=== PATIENT | male | born 1965 | race Caucasian/White ===

== ENCOUNTER 2017-03-23 18:04 | Emergency (ER) | payer BC ==
[2017-03-23 18:31] VITALS: BP 141/81
--- NOTE | 2017-03-23 18:32 | EDM.PDOC ---
ED HPI GENERAL MEDICAL PROBLEM - General Chief Complaint: Lower Extremity Injury/Pain Stated Complaint: LEFT LEG INJURY Time Seen by Provider: 03/23/17 18:15 Source of Information: Reports: Patient, Family History Limitations: Reports: No Limitations - History of Present Illness INITIAL COMMENTS - FREE TEXT/NARRATIVE: 51 yo male was lifting heavy steel weighing each about 150# out of the back of his pickup by himself just before arrival in the ER when he felt a pop in the L medial calf. He was having to stand on his tip toes to get the steel out of the truck. Now has pain to that same area with walking, viv with his knee fully extended. Had no pain or swelling to this area prior to this. Denies SOB or pleuritic chest pain. Onset: Today Onset Date: 03/23/17 Onset Time: 16:55 Duration: Minutes: Location: Reports: Lower Extremity, Left Quality: Reports: Sharp Severity: Moderate Improves with: Reports: Rest (No pain at rest. ) Worsens with: Reports: Movement Context: Reports: Trauma Associated Symptoms: Reports: No Other Symptoms Treatments [employer]: Reports: Other (see below) (none) - Related Data Allergies Allergy/AdvReac Type Severity Reaction Status Date / Time No Known Allergies Allergy Verified 03/23/17 18:25 Home Meds: Home Meds NK [No Known Home Meds] 03/23/17 [History] Review of Systems - Review of Systems Review Of Systems: See Below Constitutional: Reports: No Symptoms Respiratory: Reports: No Symptoms Cardiovascular: Reports: No Symptoms Musculoskeletal: Reports: Leg Pain (L medial calf), Muscle Pain Neurological: Reports: No Symptoms ED EXAM, GENERAL - Physical Exam Exam: See Below Exam Limited By: No Limitations General Appearance: Alert, WD/WN, No Apparent Distress Back Exam: Normal Inspection Extremities: Normal Inspection, No Pedal Edema, Other (Very minimal pain with palpation or squeezing of the calf muscle. Stretching the calf is more uncomfortable. ). No: Pedal Edema Neurological: Alert, Oriented, CN II-XII Intact, Normal Cognition, No Motor/ Sensory Deficits Psychiatric: Normal Affect, Normal Mood Skin Exam: Warm, Dry, Intact, Normal Color, No Rash Departure - Departure Time of Disposition: 18:40 Disposition: Home, Self-Care 01 Condition: Good Clinical Impression: Gastrocnemius muscle tear Qualifiers: Encounter type: initial encounter Laterality: left Qualified Code(s): S86.812A - Strain of other muscle(s) and tendon(s) at lower leg level, left leg, initial encounter - Discharge Information Referrals: Alin Coker MD [Primary Care Provider] - Forms: ED Department Discharge, ED Return to Work/School Form Additional Instructions: Crutch walking. Gentle stretching. Massage area. Take ibuprofen 400 mg every 6 hrs and/or acetaminophen as needed for pain relief. Recheck in the clinic as needed.
== END 2017-03-23 18:37 | disposition home or self-care (01) ==
LOC: FB.ED 18:04
DX: S86.812A Strain of other muscle(s) and tendon(s) at lower leg level, left leg, initial encounter (principal); X50.0XXA Overexertion from strenuous movement or load, initial encounter
CPT/HCPCS: 99283